=== PATIENT | male | born 1975 | race Caucasian/White ===

== ENCOUNTER 2016-12-24 10:40 | Emergency (ER) | payer OTHER ==
[~2016-12-24] VITALS: Ht 180.3 cm; Wt 99.8 kg
[~2016-12-24 10:40] MED LIST: INDOMETHACIN50 MG PO; KEFLEX500 MG PO; VICODIN 5/500 505 MG PO; VICODIN ES 7501 TAB PO; ZOFRAN ODT8 MG PO; [UNRECOGNIZED DRUG - REMARK]; [UNRECOGNIZED DRUG - REMARK]
[2016-12-24 11:00] LABS: BILIRUBIN NEGATIVE (NEGATIVE); BLOOD 1+ (NEGATIVE); CLARITY SL CLOUDY (CLEAR); COLOR YELLOW (YELLOW); GLUCOSE NEGATIVE (NEGATIVE); KETONE NEGATIVE (NEGATIVE); LEUKO ESTERASE NEGATIVE (NEGATIVE); NITRITE NEGATIVE (NEGATIVE); PH 6.5 (5.0-9.0); SPECIFIC GRAVITY <= 1.005 (1.005-1.030)
[2016-12-24 11:11] LABS: WBC 0-2 wbc/hpf (0-5)
[2016-12-24 11:13] LABS: BASO % 0.4 % (0.0-1.0); EOS # 0.1 10*3/uL (0.0-0.4); EOS % 1.4 % (1.0-4.0); HEMATOCRIT 47.6 % (42.0-52.0); HEMOGLOBIN 16.1 g/dl (14.0-18.0); LYMPH # 2.3 10*3/uL (1.3-4.4); LYMPH % 23.3 % (27.0-41.0); MEAN CELL VOLUME 92.8 fl (80.0-94.0); MEAN CORPUSCULAR HGB 31.4 pg (27.0-31.0); MEAN CORPUSCULAR HGB CONC 33.8 g/dl (33.0-37.0); MEAN PLATELET VOLUME 8.5 fl (9.6-12.3); MONO # 0.3 10*3/uL (0.1-1.0); MONO % 3.1 % (3.0-9.0); NEUT # 7.1 10*3/uL (2.3-7.9); NEUT % 71.6 % (47.0-73.0); PLATELET COUNT AUTOMATED 258 10*3/uL (130-400); RED BLOOD COUNT 5.13 10*6/uL (4.50-5.90); RED CELL DISTRI WIDTH 12.6 % (0-14.5); WHITE BLOOD COUNT 9.9 10*3/uL (4.8-10.8)
[2016-12-24 11:35] LABS: ALBUMIN 3.7 gm/dl (3.1-4.5); ALKALINE PHOSPHATASE 70 U/L (45-117); BUN 11 mg/dl (7-24); CHLORIDE 104 mmol/L (98-107); CREATININE 1.12 mg/dL (0.70-1.30); POTASSIUM 4.3 mmol/L (3.5-5.1); SGOT/AST 42 IU/L (3-35); SGPT/ALT 42 U/L (12-78); SODIUM 137 mmol/L (136-145); TOTAL PROTEIN 7.7 gm/dL (6.4-8.2)
[2016-12-24] MEDS ORDERED: CIPRO250 MG PO (13:29)
[2016-12-24] MEDS ORDERED: FLAGYL500 MG PO (13:29)
== END 2016-12-24 13:59 | disposition home or self-care (01) ==
LOC: ED 10:40
PROVIDERS: Nurse Practitioner Family
DX: K57.92 Diverticulitis of intestine, part unspecified, without perforation or abscess without bleeding (principal); F17.200 Nicotine dependence, unspecified, uncomplicated; Z87.442 Personal history of urinary calculi

== ENCOUNTER 2017-10-05 22:09 | Emergency (ER) | payer OTHER ==
[~2017-10-05] VITALS: Wt 99.8 kg
[~2017-10-05 22:09] MED LIST changes: +CIPRO250 MG PO; +FLAGYL500 MG PO
[2017-10-05] MEDS ORDERED: PREDNISONE10 MG PO (22:24)
== END 2017-10-05 22:35 | disposition home or self-care (01) ==
LOC: ED 22:09
DX: L23.7 Allergic contact dermatitis due to plants, except food (principal); F17.200 Nicotine dependence, unspecified, uncomplicated

== ENCOUNTER → 2018-08-14 | Outpatient (CLI) | payer OTHER ==
[~2018-08-14] MED LIST changes: +PREDNISONE10 MG PO
[2018-08-16 14:08] LABS: DILUTE PROTHROMBIN TIME 45.4 sec (0.0-55.0); DPT CONFIRM RATIO 1.07 Ratio (0.00-1.40); LUPUS DRVVT 43.7 sec (0.0-47.0); PTT-LA 43.2 sec (0.0-51.9); THROMBIN TIME 14.7 sec (0.0-23.0)
[2018-08-16 17:03] LABS: LUPUS REFLEX INTERPRETATION Comment: (.)
== END | disposition home or self-care (01) ==
LOC: LAB 13:20
PROVIDERS: Nurse Practitioner Family
DX: R53.1 Weakness (principal)

== ENCOUNTER 2021-05-27 22:59 | Inpatient (IN) | payer OTHER ==
[~2021-05-27] VITALS: Ht 180.3 cm; Wt 93.0 kg
[2021-05-27 23:13] VITALS: BP 116/71
[2021-05-27 23:46] LABS: BASO % 0.3 % (0.0-1.0); EOS # 0.1 10*3/uL (0.0-0.4); EOS % 0.4 % (1.0-4.0); LYMPH # 1.3 10*3/uL (1.3-4.4); LYMPH % 11.2 % (27.0-41.0); MEAN CELL VOLUME 90.7 fl (80.0-94.0); MEAN CORPUSCULAR HGB 30.3 pg (27.0-31.0); MEAN CORPUSCULAR HGB CONC 33.4 g/dl (33.0-37.0); MEAN PLATELET VOLUME 8.9 fl (9.6-12.3); MONO # 1.1 10*3/uL (0.1-1.0); MONO % 9.8 % (3.0-9.0); NEUT % 77.8 % (47.0-73.0); PLATELET COUNT AUTOMATED 254 10*3/uL (130-400); RED BLOOD COUNT 4.19 10*6/uL (4.50-5.90); RED CELL DISTRI WIDTH 14.9 % (0-14.5); WHITE BLOOD COUNT 11.5 10*3/uL (4.8-10.8)
[2021-05-28 00:16] LABS: POTASSIUM 3.7 mmol/L (3.5-5.1)
[2021-05-28 00:55] LABS: BILIRUBIN Negative (Negative); BLOOD 3+ (Negative); CLARITY Cloudy (Clear); COLOR Yellow (Yellow); GLUCOSE Negative (Negative); KETONE Negative (Negative); LEUKO ESTERASE 2+ (Negative); NITRITE Negative (Negative); SPECIFIC GRAVITY 1.015 (1.001-1.030); UROBILINOGEN 0.2 E.U./dl (0.0-1.0)
[2021-05-28 01:27] LABS: BACTERIA 3+; RBC 31-40 rbc/hpf (0-2); WBC 41-50 wbc/hpf (0-5)
[2021-05-28] MEDS ORDERED: B121000 MCG/1 PO (02:31)
[2021-05-28] MEDS ORDERED: METOCLOPRAMIDE5 MG PO (02:31)
[2021-05-28] MEDS ORDERED: TYLENOL325 M3 PO (02:32)
[2021-05-28] MEDS ORDERED: OFEV150 MG PO (02:32)
[2021-05-28] MEDS ORDERED: LISINOPRIL20 MG PO (02:32)
[2021-05-28] MEDS ORDERED: AMITRIPTYLINE50 MG PO (02:32)
[2021-05-28] MEDS ORDERED: PREGABALIN150 MG PO (02:33)
[2021-05-28] MEDS ORDERED: ESOMEPRAZOLE MA40 M1 PO (02:33)
[2021-05-28] MEDS ORDERED: CYMBALTA60 MG PO (02:34)
[2021-05-28] MEDS ORDERED: CELLCEPT250 MG PO (02:34)
[2021-05-28 03:05] VITALS: BP 110/69
[2021-05-28] MEDS ORDERED: VITAMIN D3125 MC1 PO (04:44)
[2021-05-28 06:27] LABS: BASO % 0.3 % (0.0-1.0); EOS # 0.1 10*3/uL (0.0-0.4); EOS % 1.1 % (1.0-4.0); HEMATOCRIT 37.3 % (42.0-52.0); LYMPH # 1.3 10*3/uL (1.3-4.4); LYMPH % 17.3 % (27.0-41.0); MEAN CORPUSCULAR HGB 29.8 pg (27.0-31.0); MEAN CORPUSCULAR HGB CONC 32.7 g/dl (33.0-37.0); MEAN PLATELET VOLUME 8.8 fl (9.6-12.3); MONO # 0.9 10*3/uL (0.1-1.0); NEUT # 4.9 10*3/uL (2.3-7.9); NEUT % 67.7 % (47.0-73.0); PLATELET COUNT AUTOMATED 223 10*3/uL (130-400); RED CELL DISTRI WIDTH 14.9 % (0-14.5); WHITE BLOOD COUNT 7.2 10*3/uL (4.8-10.8)
[2021-05-28 06:29] LABS: POTASSIUM 3.3 mmol/L (3.5-5.1)
[2021-05-28 06:41] LABS: ACT PARTIAL THROMBO TIME 28.5 SECONDS (20.0-32.1); INTERNATIONAL NORM RATIO 0.9 (2.0-3.5)
[2021-05-28 06:49] LABS: ALBUMIN 2.7 gm/dl (3.1-4.5); CREATININE 2.42 mg/dL (0.70-1.30); FREE T4 1.07 ng/dl (0.76-1.46); THYROID STIM HORMONE (HS) 1.22 uIU/ml (0.358-4.75); TOTAL PROTEIN 6.7 gm/dL (6.4-8.2)
[2021-05-28 07:46] LABS: VITAMIN D, 25-HYDROXY 34.4 ng/mL (30-100)
[2021-05-28 07:52] VITALS: BP 94/52
[2021-05-28 11:15] VITALS: BP 107/71
[2021-05-28 16:00] VITALS: BP 101/50
[2021-05-28 20:00] VITALS: BP 133/84
[2021-05-29] VITALS: BP 126/73
[2021-05-29 07:49] VITALS: BP 118/92
[2021-05-29 10:22] LABS: BASO % 0.2 % (0.0-1.0); EOS # 0.1 10*3/uL (0.0-0.4); EOS % 1.1 % (1.0-4.0); HEMATOCRIT 36.1 % (42.0-52.0); LYMPH # 1.2 10*3/uL (1.3-4.4); LYMPH % 22.7 % (27.0-41.0); MEAN CELL VOLUME 93.3 fl (80.0-94.0); MEAN CORPUSCULAR HGB CONC 32.1 g/dl (33.0-37.0); MEAN PLATELET VOLUME 8.7 fl (9.6-12.3); MONO # 0.9 10*3/uL (0.1-1.0); MONO % 15.7 % (3.0-9.0); NEUT # 3.2 10*3/uL (2.3-7.9); NEUT % 59.6 % (47.0-73.0); PLATELET COUNT AUTOMATED 197 10*3/uL (130-400); RED BLOOD COUNT 3.87 10*6/uL (4.50-5.90); RED CELL DISTRI WIDTH 14.7 % (0-14.5); WHITE BLOOD COUNT 5.4 10*3/uL (4.8-10.8)
[2021-05-29 10:35] LABS: CHLORIDE 105 mmol/L (98-107); CREATININE 1.35 mg/dL (0.70-1.30)
[2021-05-29 10:40] LABS: BUN 18 mg/dl (7-24)
[2021-05-29 10:42] LABS: SODIUM 136 mmol/L (136-145)
[2021-05-29 10:44] LABS: POTASSIUM 4.5 mmol/L (3.5-5.1)
[2021-05-29 11:53] VITALS: BP 124/86
[2021-05-29] MEDS ORDERED: CEPHALEXIN500 M1 PO (13:07)
== END 2021-05-29 13:51 | disposition home or self-care (01) | DRG 682 ==
LOC: ED 22:59 → 5E 05-28 02:18 → EDHOLD 05-28 02:18 → 5E 05-28 02:42
PROVIDERS: Hospitalist; Internal Medicine; ADMIT Internal Medicine; ATTEND Internal Medicine
DX: N17.0 Acute kidney failure with tubular necrosis (principal); E43 Unspecified severe protein-calorie malnutrition; N30.00 Acute cystitis without hematuria; E87.1 Hypo-osmolality and hyponatremia; E03.9 Hypothyroidism, unspecified; D64.9 Anemia, unspecified; E86.0 Dehydration; K21.9 Gastro-esophageal reflux disease without esophagitis; L30.4 Erythema intertrigo; N45.1 Epididymitis; J84.10 Pulmonary fibrosis, unspecified; R73.9 Hyperglycemia, unspecified; M34.9 Systemic sclerosis, unspecified; J44.9 Chronic obstructive pulmonary disease, unspecified; M10.9 Gout, unspecified; E78.1 Pure hyperglyceridemia; Z87.891 Personal history of nicotine dependence; Z82.49 Family history of ischemic heart disease and other diseases of the circulatory system; Z88.1 Allergy status to other antibiotic agents; Z82.5 Family history of asthma and other chronic lower respiratory diseases; Z68.28 Body mass index [BMI] 28.0-28.9, adult

== ENCOUNTER 2021-12-16 10:03 | Emergency (ER) | payer OTHER ==
[~2021-12-16] VITALS: Ht 177.8 cm; Wt 94.3 kg
[~2021-12-16 10:03] MED LIST changes: +AMITRIPTYLINE50 MG PO; +B121000 MCG/1 PO; +CELLCEPT250 MG PO; +CEPHALEXIN500 M1 PO; +CYMBALTA60 MG PO; +ESOMEPRAZOLE MA40 M1 PO; +LISINOPRIL20 MG PO; +METOCLOPRAMIDE5 MG PO; +OFEV150 MG PO; +PREGABALIN150 MG PO; +TYLENOL325 M3 PO; +VITAMIN D3125 MC1 PO
[2021-12-16 11:03] LABS: BASO % 0.3 % (0.0-1.0); HEMATOCRIT 45.8 % (42.0-52.0); LYMPH # 0.5 10*3/uL (1.3-4.4); LYMPH % 6.4 % (27.0-41.0); MEAN CELL VOLUME 91.4 fl (80.0-94.0); MEAN CORPUSCULAR HGB 30.1 pg (27.0-31.0); MEAN PLATELET VOLUME 8.9 fl (9.6-12.3); MONO % 12.3 % (3.0-9.0); NEUT # 6.3 10*3/uL (2.3-7.9); NEUT % 80.6 % (47.0-73.0); PLATELET COUNT AUTOMATED 203 10*3/uL (130-400); RED BLOOD COUNT 5.01 10*6/uL (4.50-5.90); RED CELL DISTRI WIDTH 14.5 % (0-14.5); WHITE BLOOD COUNT 7.8 10*3/uL (4.8-10.8)
[2021-12-16 11:18] LABS: ALKALINE PHOSPHATASE 61 U/L (45-117); BUN 21 mg/dl (7-24); CHLORIDE 100 mmol/L (98-107); CREATININE 1.52 mg/dL (0.70-1.30); SGOT/AST 25 IU/L (3-35); SGPT/ALT 37 U/L (12-78); SODIUM 131 mmol/L (136-145); TOTAL PROTEIN 7.9 gm/dL (6.4-8.2)
== END 2021-12-16 12:53 | disposition home or self-care (01) ==
LOC: ED 10:03
PROVIDERS: Emergency Medicine
DX: U07.1 COVID-19 (principal); K21.9 Gastro-esophageal reflux disease without esophagitis; J44.9 Chronic obstructive pulmonary disease, unspecified; M10.9 Gout, unspecified; Z88.1 Allergy status to other antibiotic agents; Z79.899 Other long term (current) drug therapy; Z87.891 Personal history of nicotine dependence

== ENCOUNTER 2022-11-18 20:24 | Emergency (ER) | payer OTHER ==
[~2022-11-18] VITALS: Ht 177.8 cm; Wt 99.8 kg
[~2022-11-18 20:24] MED LIST changes: +AMITRIPTYLINE H75 MG PO; +FLUOXETINE HCL10 MG PO; +LIDODERM1 EACH T; +METRONIDAZOLE500 M1 PO; +ZESTRIL10 MG PO
[2022-11-18] MEDS ORDERED: AMOX-CLAV 875-1 EACH PO (21:42)
[2022-11-18] MEDS ORDERED: PREDNISONE50 MG PO (21:42)
== END 2022-11-18 21:47 | disposition home or self-care (01) ==
LOC: ED 20:24
DX: H66.92 Otitis media, unspecified, left ear (principal); R19.7 Diarrhea, unspecified; J34.89 Other specified disorders of nose and nasal sinuses; J44.9 Chronic obstructive pulmonary disease, unspecified; Z88.1 Allergy status to other antibiotic agents; Z79.899 Other long term (current) drug therapy; Z87.891 Personal history of nicotine dependence

== ENCOUNTER 2022-12-23 20:38 | Emergency (ER) | payer OTHER ==
[~2022-12-23] VITALS: Ht 177.8 cm; Wt 99.8 kg
[~2022-12-23 20:38] MED LIST changes: +AMOX-CLAV 875-1 EACH PO; +PREDNISONE50 MG PO
[2022-12-23] MEDS ORDERED: PREDNISONE20 M1 PO (21:57)
[2022-12-23] MEDS ORDERED: COLCHICINE0.6 M1 PO (21:57)
== END 2022-12-23 22:08 | disposition home or self-care (01) ==
LOC: ED 20:38
DX: M10.9 Gout, unspecified (principal); F41.9 Anxiety disorder, unspecified; F32.A Depression, unspecified; Z87.442 Personal history of urinary calculi; Z88.8 Allergy status to other drugs, medicaments and biological substances; Z95.5 Presence of coronary angioplasty implant and graft; Z98.890 Other specified postprocedural states; Z87.891 Personal history of nicotine dependence

== ENCOUNTER → 2023-02-28 | Outpatient (CLI) | payer OTHER ==
[~2023-02-28] MED LIST changes: +COLCHICINE0.6 M1 PO; +PREDNISONE20 M1 PO
== END | disposition home or self-care (01) ==
LOC: MRI 10:00
PROVIDERS: ATTEND Family Medicine
DX: M25.462 Effusion, left knee (principal); M25.461 Effusion, right knee; M79.89 Other specified soft tissue disorders

== ENCOUNTER → 2024-01-27 | Outpatient (CLI) | payer OTHER ==
[~2024-01-27] MED LIST changes: +FLONASE ALLERG9.9 ML INH; +OSTERA TABLET1 EACH PO
== END | disposition home or self-care (01) ==
LOC: US 15:00
PROVIDERS: ATTEND Family Medicine
DX: N43.3 Hydrocele, unspecified (principal); N44.2 Benign cyst of testis

== ENCOUNTER 2024-12-24 01:27 | Inpatient (IN) | payer OTHER ==
[2024-12-24] VITALS (9 sets, daily range): BP systolic 75–111; BP diastolic 40–79
[~2024-12-24] VITALS: Ht 177.8 cm; Wt 94.5 kg
[~2024-12-24 01:27] MED LIST changes: -AMITRIPTYLINE H75 MG PO; +AMITRIPTYLINE100 M1 PO
[2024-12-24] MEDS ORDERED: SODIUM CHLORIDE 0.9% 1,000 ML IV ONE ×2 (02:05→08:10)
[2024-12-24 02:31] LABS: BASO # 0.1 10*3/uL (0.0-0.1); BASO % 0.3 % (0.0-1.0); EOS # 0.1 10*3/uL (0.0-0.4); EOS % 0.3 % (1.0-4.0); MEAN CELL VOLUME 90.2 fl (80.0-94.0); MEAN CORPUSCULAR HGB 28.5 pg (27.0-31.0); MEAN PLATELET VOLUME 8.8 fl (9.6-12.3); MONO # 1.5 10*3/uL (0.1-1.0); MONO % 7.8 % (3.0-9.0); NEUT # 15.9 10*3/uL (2.3-7.9); NEUT % 82.7 % (47.0-73.0); NUCLEATED RED BLOOD CELL 0.0 % (0.0-0.0); NUCLEATED RED BLOOD CELL 0.0 10*3/uL (0.0-0.0); PLATELET COUNT AUTOMATED 289 10*3/uL (130-400); RED CELL DISTRI WIDTH 16.2 % (0-14.5)
[2024-12-24 02:52] LABS: BUN 33.0 mg/dl (9-23); SGPT/ALT 16.0 U/L (5-49)
[2024-12-24 03:23] LABS: BILIRUBIN Negative (Negative); BLOOD Negative (Negative); CLARITY Cloudy (Clear); COLOR Dark Yellow (Yellow); KETONE Trace (Negative); LEUKO ESTERASE Trace (Negative); NITRITE Negative (Negative); PH 5.0 (4.5-8.0); SPECIFIC GRAVITY 1.025 (1.001-1.030); UROBILINOGEN 1.0 E.U./dl (0.0-1.0)
[2024-12-24] MEDS ORDERED: SODIUM CHLORIDE 0.9% 1,000 ML IV SCH (03:50)
[2024-12-24 04:08] LABS: BACTERIA 2+; EPITHELIAL CELLS 31-40
[2024-12-24] MEDS ORDERED: Hydrocortisone Sodium Succin 100 MG/2 ML VIAL IV ONE (04:40)
[2024-12-24] MEDS ORDERED: AZITHROMYCIN 250 ML IV ONE (05:25)
[2024-12-24] MEDS ORDERED: VITAMIN D350 MC4 PO (05:35)
[2024-12-24] MEDS ORDERED: ADV 100/50 INH (05:36)
[2024-12-24] MEDS ORDERED: VENT7GM INH (05:37)
[2024-12-24] MEDS ORDERED: ACETAMINOPHEN 650 MG SUPP R PRN (06:00)
[2024-12-24] MEDS ORDERED: Ondansetron Hydrochloride 4 MG/2 ML VIAL IV PRN (06:00)
[2024-12-24] MEDS ORDERED: BISACODYL 5 MG TAB PO PRN (06:00)
[2024-12-24] MEDS ORDERED: BISACODYL 10 MG SUPP R PRN (06:00)
[2024-12-24] MEDS ORDERED: Acetaminophen/Hydrocodone 5 MG/325 MG TABLET PO PRN (06:00)
[2024-12-24] MEDS ORDERED: ACETAMINOPHEN 325 MG TAB PO PRN (06:00)
[2024-12-24] MEDS ORDERED: Albuterol Sulf/Ipratropium 3 ML VIAL NEB SCH (06:10)
[2024-12-24] MEDS ORDERED: PERFLUTREN PROTEIN-A MICROSPHR 3 ML VIAL IV ONE (07:47)
[2024-12-24] MEDS ORDERED: GUAIFENESIN 600 MG TAB ER PO SCH (10:00)
[2024-12-24] MEDS ORDERED: Cholecalciferol 2,000 UNIT TABLET (50 MCG) PO SCH (10:00)
[2024-12-24] MEDS ORDERED: Mycophenolate Mofetil 250 MG CAP PO SCH (10:00)
[2024-12-24] MEDS ORDERED: HEPARIN SODIUM 5,000 UNIT/ML VIAL SC SCH (10:00)
[2024-12-24] MEDS ORDERED: OSTERA PO SCH (10:00)
[2024-12-24 12:15] LABS: VITAMIN D, 25-HYDROXY 76.9 ng/mL (30-100)
[2024-12-24 12:17] LABS: BUN 26.0 mg/dl (9-23); FREE T4 1.46 ng/dl (0.89-1.76); LDL CHOLESTEROL 136.0 mg/dL (9-159); SGPT/ALT 16.0 U/L (5-49)
[2024-12-24 18:10] LABS: BASO # 0.0 10*3/uL (0.0-0.1); BASO % 0.2 % (0.0-1.0); EOS # 0.1 10*3/uL (0.0-0.4); EOS % 0.8 % (1.0-4.0); MEAN CELL VOLUME 90.4 fl (80.0-94.0); MEAN CORPUSCULAR HGB 28.5 pg (27.0-31.0); MEAN PLATELET VOLUME 9.2 fl (9.6-12.3); MONO # 0.8 10*3/uL (0.1-1.0); MONO % 8.0 % (3.0-9.0); NEUT # 7.1 10*3/uL (2.3-7.9); NEUT % 74.5 % (47.0-73.0); NUCLEATED RED BLOOD CELL 0.0 % (0.0-0.0); NUCLEATED RED BLOOD CELL 0.0 10*3/uL (0.0-0.0); PLATELET COUNT AUTOMATED 207 10*3/uL (130-400); RED CELL DISTRI WIDTH 16.3 % (0-14.5)
[2024-12-24] MEDS ORDERED: Amitriptyline Hydrochloride 50 MG TAB PO SCH (22:00)
[2024-12-25] VITALS: BP 111/71
[2024-12-25 04:15] VITALS: BP 118/78
[2024-12-25 04:27] LABS: BASO # 0.0 10*3/uL (0.0-0.1); BASO % 0.4 % (0.0-1.0); EOS # 0.1 10*3/uL (0.0-0.4); EOS % 1.5 % (1.0-4.0); MEAN CELL VOLUME 90.8 fl (80.0-94.0); MEAN CORPUSCULAR HGB 28.6 pg (27.0-31.0); MEAN PLATELET VOLUME 8.5 fl (9.6-12.3); MONO # 0.5 10*3/uL (0.1-1.0); MONO % 7.1 % (3.0-9.0); NEUT # 5.2 10*3/uL (2.3-7.9); NEUT % 69.1 % (47.0-73.0); NUCLEATED RED BLOOD CELL 0.0 % (0.0-0.0); NUCLEATED RED BLOOD CELL 0.0 10*3/uL (0.0-0.0); PLATELET COUNT AUTOMATED 164 10*3/uL (130-400); RED CELL DISTRI WIDTH 15.9 % (0-14.5)
[2024-12-25 04:45] LABS: BUN 18 mg/dl (9-23)
[2024-12-25] MEDS ORDERED: AZITHROMYCIN 250 ML IV SCH (05:00)
[2024-12-25 08:00] VITALS: BP 101/48
[2024-12-25] MEDS ORDERED: SODIUM CHLORIDE 0.9% 50 ML BAG IV ONE (08:38)
[2024-12-25] MEDS ORDERED: Albuterol Sulf/Ipratropium 3 ML VIAL NEB PRN (11:25)
[2024-12-25 12:00] VITALS: BP 127/83
[2024-12-25 16:00] VITALS: BP 118/56
[2024-12-25 20:07] VITALS: BP 118/64
[2024-12-26] VITALS: BP 113/68
[2024-12-26 04:10] VITALS: BP 107/68
[2024-12-26 05:32] LABS: BUN 10 mg/dl (9-23)
[2024-12-26 06:27] LABS: BASO # 0.0 10*3/uL (0.0-0.1); BASO % 0.4 % (0.0-1.0); EOS # 0.2 10*3/uL (0.0-0.4); EOS % 2.2 % (1.0-4.0); MEAN CELL VOLUME 91.0 fl (80.0-94.0); MEAN CORPUSCULAR HGB 29.0 pg (27.0-31.0); MEAN PLATELET VOLUME 9.6 fl (9.6-12.3); MONO # 0.6 10*3/uL (0.1-1.0); MONO % 8.0 % (3.0-9.0); NEUT # 5.3 10*3/uL (2.3-7.9); NEUT % 69.6 % (47.0-73.0); NUCLEATED RED BLOOD CELL 0.0 % (0.0-0.0); NUCLEATED RED BLOOD CELL 0.0 10*3/uL (0.0-0.0); PLATELET COUNT AUTOMATED 204 10*3/uL (130-400); RED CELL DISTRI WIDTH 15.5 % (0-14.5)
[2024-12-26 08:00] VITALS: BP 99/75
[2024-12-26 11:48] VITALS: BP 105/81
[2024-12-26] MEDS ORDERED: ZITHROMAX250 MG PO (13:45)
== END 2024-12-26 14:05 | disposition home or self-care (01) | DRG 871 ==
LOC: ED 01:27 → EDHOLD 05:47 → ICCU 05:47 → EDHOLD 06:07 → ICCU 20:13
PROVIDERS: Internal Medicine; ADMIT Internal Medicine; ATTEND Internal Medicine
DX: A41.9 Sepsis, unspecified organism (principal); J18.9 Pneumonia, unspecified organism; N17.0 Acute kidney failure with tubular necrosis; R65.21 Severe sepsis with septic shock; E87.1 Hypo-osmolality and hyponatremia; N18.4 Chronic kidney disease, stage 4 (severe); G90.9 Disorder of the autonomic nervous system, unspecified; R73.9 Hyperglycemia, unspecified; Z20.822 Contact with and (suspected) exposure to COVID-19; M10.9 Gout, unspecified; M34.9 Systemic sclerosis, unspecified; J84.10 Pulmonary fibrosis, unspecified; K21.9 Gastro-esophageal reflux disease without esophagitis; M83.9 Adult osteomalacia, unspecified; E86.9 Volume depletion, unspecified; I12.9 Hypertensive chronic kidney disease with stage 1 through stage 4 chronic kidney disease, or unspecified chronic kidney disease; Z88.0 Allergy status to penicillin; Z82.49 Family history of ischemic heart disease and other diseases of the circulatory system; Z83.3 Family history of diabetes mellitus; Z82.5 Family history of asthma and other chronic lower respiratory diseases; Z83.49 Family history of other endocrine, nutritional and metabolic diseases; Z79.899 Other long term (current) drug therapy